=== PATIENT | male | born 1995 | race Caucasian/White ===

== ENCOUNTER 2016-08-27 22:01 | Emergency (ER) | payer BC ==
[~2016-08-27] VITALS: Ht 180.3 cm; Wt 90.2 kg
[2016-08-27 22:32] VITALS: BP 128/74; PULSE 60; RESP 18; TEMP 98.6; O2SAT 99
[2016-08-27] MEDS ORDERED: BACT800T5 PO (23:19)
--- NOTE | 2016-08-27 23:20 | PD ---
HPI Chief Complaint: Skin Problem Time Seen by Provider: 23:19 Travel History International Travel<30 days: No Contact w/Intl Traveler<30days: No Traveled to known affect area: No History of Present Illness HPI Patient 21-year-old male presents emergency department for evaluation of a wound on his left side of his back. Patient states been there for approximately the past. His girlfriend states that the redness was much larger and is now starting to subside since it started to drain. Patient states still has some pain when rubs up against his clothing but it's bearable. He came in to have it evaluated. Denies a fever denies any nausea vomiting denies any history of HIV or diabetes. PFSH Past Medical History Medical History: Denies Significant Hx Past Surgical History Surgical History: No Previous Surgery Family History Narrative Family History Noncontributory Family History: Social History Narrative Social History Occasional marijuana Alcohol Use: No Tobacco Use: No Substance Use: Yes Allergies-Medications (Allergen,Severity, Reaction): Coded Allergies: No Known Allergies (Unverified , 08/27/16) Reported Meds & Prescriptions Reported Meds & Active Scripts Active Bactrim DS (Sulfamethoxazole-Trimethoprim) 800-160 Mg Tab 2 Tab PO BID 7 Days Review of Systems Except as stated in HPI: all other systems reviewed are Neg Physical Exam Narrative GENERAL: Well-nourished, well-developed patient. No apparent distress. SKIN: There is a small area of cellulitis and induration approximately 2 x 2 centimeters induration on the left side of his back. Just inferior to the scapula. No fluctuance is appreciated. There is cellulitis on top of the induration alone and does not extend past induration. There is an ulcerative opening in the middle of the induration. No fluctuance is felt. It tends to manually express any pus is unsuccessful. HEAD: Normocephalic. EYES: No scleral icterus. No injection or drainage. NECK: Supple, trachea midline. No JVD or lymphadenopathy. CARDIOVASCULAR: Regular rate and rhythm without murmurs, gallops, or rubs. RESPIRATORY: Breath sounds equal bilaterally. No accessory muscle use. GASTROINTESTINAL: Abdomen soft, non-tender, nondistended. MUSCULOSKELETAL: No cyanosis, or edema. BACK: Nontender without obvious deformity. No CVA tenderness. Data Data Last Documented VS Vital Signs Date Time Temp Pulse Resp B/P Pulse Ox O2 Delivery O2 Flow Rate FiO2 08/27/16 22:32 98.6 60 18 128/74 99 Orders Sulfamet-Trimeth Ds 800-160 Mg (Bactrim (08/27/16 23:30) [facility] Medical Decision Making Medical Screen Exam Complete: Yes Emergency Medical Condition: Yes Differential Diagnosis Abscess, cellulitis, erysipelas. Narrative Course Patient roomed in the emergency department, he does have cellulitis and induration of his back but appears as though the abscesses are drained all the way out. Patient appears well and nontoxic. No indication further emergent workup. Will be placed on Bactrim discussed symptomatically management return to ED criteria. Diagnosis Primary Impression: Abscess of back Med/Other Pt SpecificInfo: Prescription(s) given Scripts Sulfamethoxazole-Trimethoprim (Bactrim DS)800-160 Mg Tab2 Tab PO BID 7 Days Ref 0 Prov:Mike Navarrete MD 08/27/16 Disposition: 01 DISCHARGE HOME Condition: Stable Mike Navarrete MD Aug 27, 2016 23:20
[2016-08-27] MEDS ORDERED: SULFAMETHOXAZOLE-TRIMETHOPRIM DS 800-160 MG TAB PO ONE (23:30)
== END 2016-08-27 23:32 | disposition home or self-care (01) ==
LOC: PHED 22:01 → PHEFT 23:32
DX: L02.212 Cutaneous abscess of back [any part, except buttock and flank] (principal)
CPT/HCPCS: 99282